=== PATIENT | female | born 1990 | race Hispanic/Latino ===

== ENCOUNTER 2018-10-11 11:08 | Emergency (ER) | payer MEDICAID ==
[~2018-10-11 11:08] MED LIST: CALC667T5 PO; CLON0.2T PO; PANT40TA25 PO
[2018-10-11] MEDS ORDERED: ONDANSETRON ODT 4 MG TAB ONE (11:49)
[2018-10-11] MEDS ORDERED: MORPHINE SULFATE 4 MG/1ML SYG ONE (11:49)
[2018-10-11 12:22] LABS: BASOPHILS % (AUTO) 0.6 % (0.0-5.0); EOSINOPHILS % (AUTO) 3.2 % (0.0-8.0); HEMATOCRIT 27.5 % (36-48); LYMPHOCYTES % (AUTO) 7.2 % (21.0-51.0); MEAN CORPUSCULAR HEMOGLOBIN 28.3 pg (27.0-33.0); MEAN CORPUSCULAR HGB CONC 32.5 g/dL (32.0-36.0); MONOCYTES % (AUTO) 12.7 % (3.0-13.0); NEUTROPHILS % (AUTO) 76.3 % (40.0-77.0); NUCLEATED RED BLOOD CELLS 0.1 % (0.0-0.19); PLATELET COUNT (AUTO) 334 K/uL (130-400); RED BLOOD CELL COUNT(AUTO) 3.16 MIL/uL (4.00-5.50); WHITE BLOOD COUNT (AUTO) 8.1 K/uL (4.8-10.8)
[2018-10-11 12:43] LABS: ALBUMIN 1.9 g/dL (3.5-5.0); BILIRUBIN,TOTAL 0.6 mg/dL (0.2-1.0); POTASSIUM 4.7 mmol/L (3.5-5.1); TOTAL PROTEIN, SERUM 5.8 g/dL (6.0-8.3)
[2018-10-11 12:48] LABS: CREATININE 9.3 mg/dL (0.5-1.5)
== END 2018-10-11 13:54 | disposition home or self-care (01) ==
LOC: EDH 11:08
DX: I12.0 Hypertensive chronic kidney disease with stage 5 chronic kidney disease or end stage renal disease (principal); E11.22 Type 2 diabetes mellitus with diabetic chronic kidney disease; N18.6 End stage renal disease; F32.9 Major depressive disorder, single episode, unspecified; F41.9 Anxiety disorder, unspecified; Z72.0 Tobacco use; Z99.2 Dependence on renal dialysis
CPT/HCPCS: 36415; 80053; 84702; 85025; 93005; 96372; 99284; J2270